=== PATIENT | female | born 2000 ===

== ENCOUNTER 2020-07-03 11:39 | Emergency (ER) | payer OTHER ==
[~2020-07-03] VITALS: Ht 165.1 cm; Wt 61.7 kg
[2020-07-03] MEDS ORDERED: KETO10TA2 PO (12:34)
== END 2020-07-03 12:54 | disposition home or self-care (01) ==
LOC: ER 11:39
DX: N83.291 Other ovarian cyst, right side (principal); R10.2 Pelvic and perineal pain